=== PATIENT | male | born 1975 | race Caucasian/White ===

== ENCOUNTER 2024-07-05 14:42 | Outpatient (CLI) | payer BC, SELFPAY ==
--- NOTE | 2024-07-05 14:49 | US_ITS ---
FINAL REPORT CLINICAL HISTORY: INGUINAL HERNIA COMPARISON: None FINDINGS: Limited sonographic images were obtained of the soft tissues in the right groin at the area of interest. There is right inguinal adenopathy with the largest measuring 3.1 cm. This has a nonspecific appearance and is likely reactive or neoplastic. IMPRESSION: Right inguinal adenopathy, likely reactive or neoplastic. Reviewed, Interpreted and Dictated by Jak August III, MD Transcribed by Enedina Easton Authenticated and [facility]
== END 2024-07-05 23:59 | disposition home or self-care (01) ==
LOC: RAD 14:43
PROVIDERS: PCP Nurse Practitioner; Visit Provider Nurse Practitioner
DX: K40.90 Unilateral inguinal hernia, without obstruction or gangrene, not specified as recurrent (principal)
CPT/HCPCS: 76882

== ENCOUNTER 2024-11-29 06:02 | Day surgery (SDC) | payer BC, SELFPAY ==
[2024-11-26 10:02] VITALS: BMI 30.5
--- NOTE | 2024-11-29 06:43 | EXP.GEN.HP ---
HPI HPI HPI: Patient is a 49-year-old male who presents for initial screening colonoscopy. He has a family history of precancerous polyps in his father and 2 uncles. There is a possibility of cancerous polyp which did not require surgical intervention. [facility] Disclaimer: The information contained in this section may have been updated after the patient was seen, as this information can be updated by other users. Medical History (Updated 11/29/24 @ 06:59 by Bryant Webster RN) No significant past medical history Surgical History H/O knee surgery History of hip surgery Family History Skin cancer Diabetes Kidney disease Heart disease Social History Smoking Status: Never smoker alcohol intake: never current occupational status: employed Travel in the last 8 weeks?: None Have you lived/traveled outside [place] in past 30 days?: No Contact w/someone who lives/traveled outside [place] past 30 days?: No Exposure to someone with infectious disease in past 14 days?: No Do you have a fever (greater than 100.4 F or 38 C)?: No Have you tested positive for COVID-19?: No Exposed to someone with COVID-19 in past 14 days?: No Do you have a sore throat?: No Do you have a cough?: No Do you have any weakness?: No Are you experiencing any nausea/vomitting?: No Do you have any diarrhea?: No Are you experiencing any unusual bleeding?: No Do you have any muscle aches/pain?: No Do you have any abdominal pain?: No Are you experiencing loss of taste or smell?: No Meds Home Medications and Allergies New Prescriptions to Start Prescriptions: Allergies Allergy/AdvReac Type Severity Reaction Status Date / Time chocolate Allergy Anaphylaxis Verified 11/29/24 06:59 morphine Allergy Rash Verified 11/29/24 06:59 PCN (penicillin) Allergy Unknown Unknown Uncoded 11/26/24 09:56 allergy reaction Exam Data for Last 24 hours I & O for Last 24 hours: Intake & Output 11/26/24 11/27/24 11/28/24 11/29/24 11:59 11:59 11:59 11:59 Weight 195 lb Constitutional Constitutional: no acute distress *Routine HEENT Exam Head: Present normocephalic Eye: Present EOMI and PERRL ENT: Present mucous membranes moist *Routine Neck Exam Neck: Present supple; Absent lymphadenopathy *Routine Respiratory Exam Respiratory: Present CTA bilaterally *Routine Cardiovascular Exam Cardiovascular: Present RRR *Routine Abdominal Exam Abdominal: Present soft and normoactive bowel sounds; Absent tenderness *Routine Rectal Exam Rectal:: deferred *Routine Genitalia Exam Genitalia:: deferred *Routine Extremities Exam Extremities: Absent cyanosis, clubbing or edema *Routine Skin Exam Skin: Present warm; Absent rash *Routine Neurological Exam Neurological: Present alert and oriented X3 Assessment and Plan *Assessment and plan (1) Encounter for screening colonoscopy: Status: Acute Category: Medical Code(s): Z12.11 - Encounter for screening for malignant neoplasm of colon Plan Proceed with colonoscopy
[2024-11-29] MEDS: LACTATED RINGERS 1000ML 1,000 ML 50 ML IV (06:58)
[2024-11-29 07:01] VITALS: BP 162/94; PULSE 56; RESP 18; TEMP 36.2; O2SAT 99
[2024-11-29 07:14] VITALS: O2SAT 99
--- NOTE | 2024-11-29 07:23 | P.PNANES_ITS ---
[facility] Disclaimer: The information contained in this section may have been updated after the patient was seen, as this information can be updated by other users. Medical History (Updated 11/29/24 @ 06:59 by Bryant Webster RN) No significant past medical history Surgical History H/O knee surgery History of hip surgery Family History Other Diabetes Heart disease Kidney disease Skin cancer Social History Smoking Status: Never smoker alcohol intake: never substance use type: denies use current occupational status: employed Travel in the last 8 weeks?: None [facility] Anesthesia Checklist Patient Identification Patient Identification: Arm Band and Verbal (Name & ) Structural Data Admitted From: Home Planned Operative Procedure/s: colonoscopy Consent for Planned Operative Procedure(s) Verified: Yes Verified Documents: Surgical Consent NPO Status Verified Time NPO: 00:00 Chart Verification Results Verified: None Additional verifications Patient : No Anesthesia Reactions: No Hx Blood Transfusions: No Blood Transfusion Reaction: No Cephalosporin Allergy: No Airway Assessment Mallampati Score:: Class I C-Spine Mobility Assessed: Yes TMJ Mobility Assessed: No Dentition: Good Dentition Neurological Assessment Level of Consciousness: Awake, Alert and Appropriate Hx Seizures: No Numbness or tingling in extremities: No Anesthesia Plan Anesthesia Risk discussed: Yes Anesthesia Plan: Verified Anesthesia Type: MAC
--- NOTE | 2024-11-29 07:43 | HMH.SCOPE ---
Procedure: Date: 11/29/24 Patient Date of :: 1975 Procedure Performed:: Total colonoscopy to terminal ileum with snare polypectomy x 2 Indications:: Patient is a 49-year-old male who presents for initial screening colonoscopy. He does have a family history of precancerous polyps and possibly cancerous polyp in his father and 2 paternal uncles. Performing Provider:: Jak Tripathi MD Referring Provider:: Yaima Greene Sedation:: MAC sedation Procedure:: Patient history was obtained and appropriate physical examination was performed. Patient's medications and allergies were reviewed. Informed consent was obtained after explaining the benefits, alternatives, and risks of the procedure including, but not limited to, bleeding, perforation, missed lesions, and adverse reaction to anesthesia medications. Patient was transported to endoscopy procedure room. Patient was connected to monitoring devices. Throughout the procedure the patient's blood pressure, pulse, and oxygen saturations were monitored continuously. Patient identification and planned procedure were verified by the staff. Patient was positioned in lateral decubitus position. Digital anorectal exam was performed. Variable stiffness Olympus colonoscope was inserted and advanced under direct visualization to the cecum. Adequacy of the colonic preparation was noted. The colonoscope was advanced a short distance into the terminal ileum. The colonoscope was then slowly withdrawn while carefully examining the color, texture, anatomy, and integrity of the mucosoa circumferentially. Within the rectum retroflexion was performed. Colonoscope was then withdrawn. Impression: Colonic preparation was excellent. There was a single diverticulum in the transverse colon. In the descending colon there was a sessile small adenomatous appearing polyp removed with cold snare. In the proximal sigmoid colon there was a similar sessile adenomatous appearing small polyp removed with cold snare. Retroflexion within the rectum revealed minimal hemorrhoidal prolapse, nonbleeding. . Findings:: Diverticulum Small adenomatous appearing polyp x 2 as noted above Recommendations:: Repeat colonoscopy pending pathology, likely 3 to 5 years Complications:: None immediately apparent Estimated blood obtained (mL): 1 Colonoscopy Component Colonoscopy Component Was a colonoscopy performed during today's procedure?: Yes Recommended follow up colonoscopy of at least 10 years?: No If no, follow up colonoscopy recommended in ___ years?: See above Reason for not recommending >/= 10 yr follow-up interval?: see above
[2024-11-29 07:45] VITALS: BP 102/51; PULSE 71; RESP 18; TEMP 36.3; O2SAT 97
[2024-11-29 07:55] VITALS: BP 90/47; PULSE 61; RESP 16; O2SAT 99
[2024-11-29 08:05] VITALS: BP 109/51; PULSE 68; RESP 16; O2SAT 99
[2024-11-29 08:15] VITALS: BP 110/61; PULSE 70; RESP 18; O2SAT 100
== END 2024-11-29 08:20 | disposition home or self-care (01) ==
PROVIDERS: PCP Nurse Practitioner; Visit Provider Surgery
PROC: 0DJD8ZZ Inspection of Lower Intestinal Tract, Via Natural or Artificial Opening Endoscopic (ICD-10-PCS; CPT 45385; principal; 2024-11-29 07:30)
DX: Z12.11 Encounter for screening for malignant neoplasm of colon (principal); D12.4 Benign neoplasm of descending colon; D12.5 Benign neoplasm of sigmoid colon; K57.30 Diverticulosis of large intestine without perforation or abscess without bleeding; K64.9 Unspecified hemorrhoids; Z83.710 Family history of adenomatous and serrated polyps
CPT/HCPCS: 45385; J2704; J7120